=== PATIENT | male | born 2000 | race Caucasian/White ===

== ENCOUNTER 2021-10-14 06:50 | Emergency (ER) | payer BC ==
[~2021-10-14] VITALS: Ht 175.3 cm; Wt 67.1 kg
[2021-10-14 07:15] VITALS: BP_SYST 143
--- NOTE | 2021-10-14 07:15 | NUR ---
Patient to ER bed 3 to gown for evaluation. Side rails up. Report given to CRISTINA RODRÍGUEZ.
--- NOTE | 2021-10-14 07:50 | NUR ---
20 years old male presents to er with sore throat for 3 days denies chills, difficulty swallowing.
[2021-10-14] MEDS ORDERED: DEXAMETHASONE SOD PHOSPHATE 10 MG/ML VIAL IM ONE (08:30)
[2021-10-14] MEDS ORDERED: IBUPROFEN 600 MG TABLET PO ONE (08:45)
--- NOTE | 2021-10-14 08:50 | NUR ---
med given IM as prescribed,throat culture collected/sent.
[2021-10-14] MEDS ORDERED: IBUP-1969 PO (08:57)
[2021-10-14] MEDS ORDERED: AZIT-93 PO (08:57)
[2021-10-14] MEDS ORDERED: TRAM50TA2 PO (08:57)
--- NOTE | 2021-10-14 09:44 | NUR ---
Patient given written and verbal discharge instructions and verbalizes understanding. ER MD discussed with patient the results and treatment provided. Patient in stable condition. ID arm band removed. Rx of AZITHROMYCIN, IBUPROFEN given. Patient educated on pain management and to follow up with PMD. Pain Scale . Opportunity for questions provided and answered. Medication side effect fact sheet provided.
== END 2021-10-14 09:45 | disposition home or self-care (01) ==
LOC: SED 06:50
DX: J03.90 Acute tonsillitis, unspecified (principal); Z79.899 Other long term (current) drug therapy
CPT/HCPCS: 86403; 87081; 96372; 99283; J1100; 36415

== ENCOUNTER 2022-05-25 00:26 | Emergency (ER) | payer BC ==
[~2022-05-25] VITALS: Ht 175.3 cm; Wt 68.0 kg
[2022-05-25 00:26] VITALS: BP_SYST 129
[~2022-05-25 00:26] MED LIST: AZIT-93 PO; IBUP-1969 PO; TRAM50TA2 PO
--- NOTE | 2022-05-25 00:26 | NUR ---
Patient brought in from home complaining of sore throat and pus x 3 days. patient reports that he was diagnosed with peritonsilar abcess in September and feels the same. swelling noted to bilateral tonsils and exudates noted on left tons. pain 08/28.
[2022-05-25 02:01] LABS: BASOPHILS # (AUTO) 0.1 K/uL (0.0-0.2); BASOPHILS % (AUTO) 0.9 % (0.0-2.0); EOSINOPHILS # (AUTO) 0.1 K/uL (0.0-0.4); EOSINOPHILS % (AUTO) 1.4 % (0.0-4.0); HEMATOCRIT 38.1 % (36-54); HEMOGLOBIN 12.9 g/dL (14.0-18.0); LYMPHOCYTES # (AUTO) 1.7 K/uL (1.0-5.5); LYMPHOCYTES % (AUTO) 17.2 % (20.5-51.5); MEAN CORPUSCULAR HEMOGLOBIN 31 pg (27-31); MEAN CORPUSCULAR HGB CONC 34 % (32-36); MEAN CORPUSCULAR VOLUME 91 fL (79.0-98.0); MONOCYTES % (AUTO) 10.4 % (1.7-9.3); NEUTROPHILS # (AUTO) 6.8 K/uL (1.8-7.7); NEUTROPHILS % (AUTO) 70.1 % (40.0-70.0); PLATELET COUNT (AUTO) 199 K/uL (130-430); RED BLOOD CELL COUNT(AUTO) 4.19 MIL/uL (4.2-6.2); RED CELL DISTRIBUTION WIDTH 13.9 % (9.0-15.0); WHITE BLOOD COUNT (AUTO) 9.8 K/uL (4.5-11.0)
[2022-05-25 02:28] LABS: CALCIUM 8.6 mg/dL (8.4-11.0); CREATININE 0.96 mg/dL (0.55-1.30); POTASSIUM 4.1 mmol/L (3.5-5.1)
[2022-05-25 02:34] LABS: ALBUMIN 3.3 g/dL (3.4-4.8); TOTAL BILIRUBIN 0.3 mg/dL (0.0-1.0)
[2022-05-25] MEDS ORDERED: DECADRON 4 MG TABLET PO ONE (03:30)
--- NOTE | 2022-05-25 04:08 | NUR ---
strep throat specimen collected
[2022-05-25] MEDS ORDERED: OXYCODONE/ACETAMINOPHEN 5-325 TABLET PO ONE (05:00)
[2022-05-25] MEDS ORDERED: DEXAMETHASONE SOD PHOSPHATE 10 MG/ML VIAL IM ONE (05:00)
[2022-05-25] MEDS ORDERED: AZIT-93 PO (05:01)
[2022-05-25] MEDS ORDERED: TRAM50TA PO (05:01)
[2022-05-25] MEDS ORDERED: TRAM50TA2 PO (05:03)
[2022-05-25] MEDS ORDERED: IBUP-1969 PO (05:06)
[2022-05-25 05:14] LABS: BILIRUBIN,URINE NEGATIVE (NEGATIVE); BLOOD, URINE NEGATIVE (NEGATIVE); CLARITY/URINE CLEAR (CLEAR); COLOR,URINE YELLOW (YELLOW); GLUCOSE,URINE NEGATIVE (NEGATIVE); KETONES,URINE TRACE (NEGATIVE); LEUKOCYTE ESTERASE ,URINE NEGATIVE (NEGATIVE); NITRITE, URINE NEGATIVE (NEGATIVE); PH,URINE 7.5 (5.0-8.0); PROTEIN URINE TRACE (NEGATIVE)
[2022-05-25 05:24] VITALS: BP_SYST 120
--- NOTE | 2022-05-25 05:27 | NUR ---
DANAY RN PT STABLE FOR D/C TO HOME WITH DAD. TO LOBBY AMB WITH ALL PAPERWORK IN HAND. PT VERBALIZES UNDERSTANDING AND WILL F/U WITH PMD ON THURSDAY
== END 2022-05-25 05:24 | disposition home or self-care (01) ==
LOC: SED 00:26
DX: J36 Peritonsillar abscess (principal); Z88.0 Allergy status to penicillin; Z79.899 Other long term (current) drug therapy
CPT/HCPCS: 99283; 80053; 85025; 86403; 87086; 36415; 96372; 83605; 81003; 87040; 87081; J1100